=== PATIENT | male | born 1955 | race Caucasian/White ===

== ENCOUNTER 2018-08-11 12:18 | Inpatient (IN) | payer OTHER ==
[~2018-08-11] VITALS: Ht 185.4 cm; Wt 104.9 kg
[~2018-08-11 12:18] MED LIST: ASCO100019 PO; IRBE1TAB37 PO; LAMO25TA PO; LEVO5TAB29 PO; LYSI500T25 PO; NAPR220C2 PO
[2018-08-11] MEDS ORDERED: LACTATED RINGERS 1,000 ML IV SCH (13:09)
[2018-08-11] MEDS ORDERED: FENTANYL PF 250 MCG/5ML ONE (15:09)
[2018-08-11] MEDS ORDERED: MIDAZOLAM 1 MG/ML, 2ML ONE (15:09)
[2018-08-11] MEDS: ROPIvacaine/PF 0.2%, 100ML 550 ML (check volume) INJ ONE (16:00)
[2018-08-11] MEDS ORDERED: PROPOFOL 10 MG/ML, 50ML ONE (16:02)
[2018-08-11] MEDS ORDERED: ROCURONIUM 10 MG/ML,10ML ONE (16:02)
[2018-08-11] MEDS ORDERED: SUCCINYLCHOLINE 20 MG/ML, 10ML ONE (16:02)
[2018-08-11] MEDS ORDERED: TRANEXAMIC ACID 100 MG/ML, 10ML ONE (16:20)
[2018-08-11] MEDS ORDERED: DEXAMETHASONE 4 MG/ML, 1ML ONE (17:56)
[2018-08-11] MEDS ORDERED: PROPOFOL 10 MG/ML, 20ML ONE (17:56)
[2018-08-11] MEDS ORDERED: CEFAZOLIN 1,000 MG ONE (17:56)
[2018-08-11] MEDS ORDERED: BUPIVACAINE/PF 0.25% ONE (17:56)
[2018-08-11] MEDS ORDERED: ONDANSETRON 2MG/ML, 2ML ONE (17:56)
[2018-08-11] MEDS ORDERED: ONDANSETRON 2MG/ML, 2ML IV PRN ×2 (18:00→23:00)
[2018-08-11] MEDS ORDERED: ALBUTEROL/IPRATROPIUM 2.5MG/0.5MG, 3 ML NPPB PRN (18:00)
[2018-08-11] MEDS ORDERED: HYDROmorphone 2 MG/ML, 1ML IVPush PRN (18:00)
[2018-08-11] MEDS ORDERED: OXYcodone 5 MG/5 ML ORAL.SOL UDC PO PRN ×2 (18:00→23:00)
[2018-08-11] MEDS ORDERED: FENTANYL PF 100 MCG/2ML IV PRN (18:00)
[2018-08-11] MEDS ORDERED: PROMETHAZINE 25 MG/ML, 1ML IV PRN (18:00)
[2018-08-11] MEDS ORDERED: LABETALOL 5MG/ML, 20ML IV PRN (18:00)
[2018-08-11] MEDS ORDERED: MEPERIDINE/PF 25MG/0.5ML IVPush PRN (18:00)
[2018-08-11] MEDS ORDERED: hydrALAzine 20 MG/ML, 1ML IV PRN (18:00)
[2018-08-11] MEDS ORDERED: MIDAZOLAM 1 MG/ML, 2ML IV PRN (18:00)
[2018-08-11] MEDS ORDERED: SCOPOLAMINE PATCH, 1.5MG PATCH.TD72 TD PRN (18:00)
[2018-08-11 20:30] VITALS: BP 144/77
[2018-08-11] MEDS ORDERED: DIPHENHYDRAMINE 25 MG CAPSULE PO PRN (23:00)
[2018-08-11] MEDS ORDERED: HYDROcodone/APAP 7.5-325MG/15ML UDC PO PRN (23:00)
[2018-08-11] MEDS ORDERED: morphine SULFATE 10 MG/ML, 1ML IV PRN (23:00)
[2018-08-11] MEDS: KETOROLAC 30 MG/1 ML IV SCH (23:55)
[2018-08-11] MEDS: CEFAZOLIN PMX 2GM/50ML 50 ML IVPB SCH (23:55)
[2018-08-12 00:09] VITALS: BP 136/77
[2018-08-12 04:21] VITALS: BP 130/71
[2018-08-12] MEDS ORDERED: ENOXAPARIN 40 MG/0.4 ML SQ SCH (06:00)
[2018-08-12 06:59] VITALS: BP 117/71
[2018-08-12] MEDS: CEFAZOLIN PMX 2GM/50ML 50 ML IVPB SCH (07:59)
[2018-08-12] MEDS: KETOROLAC 30 MG/1 ML IV SCH (07:59)
[2018-08-12] MEDS ORDERED: ASPIRIN 81 MG TABLET CHEW PO SCH (09:00)
== END 2018-08-12 11:48 | disposition home or self-care (01) | DRG 469 ==
LOC: ORIP 12:18 → 4NOR 20:30 → DCLOUNGE 08-12 11:40
PROVIDERS: ADMIT Orthopaedic Surgery Foot and Ankle Surgery; ATTEND Orthopaedic Surgery Foot and Ankle Surgery
PROC: 0QPJ04Z Removal of Internal Fixation Device from Right Fibula, Open Approach (ICD-10-PCS; 2018-08-11)
PROC: 0QPG04Z Removal of Internal Fixation Device from Right Tibia, Open Approach (ICD-10-PCS; 2018-08-11)
PROC: 0L8N0ZZ Division of Right Lower Leg Tendon, Open Approach (ICD-10-PCS; 2018-08-11)
PROC: 3E0T3BZ Introduction of Anesthetic Agent into Peripheral Nerves and Plexi, Percutaneous Approach (ICD-10-PCS; 2018-08-11)
PROC: 0SRF0JZ Replacement of Right Ankle Joint with Synthetic Substitute, Open Approach (ICD-10-PCS; principal; 2018-08-11 14:15)
DX: M17.31 Unilateral post-traumatic osteoarthritis, right knee (principal); I10 Essential (primary) hypertension; K21.9 Gastro-esophageal reflux disease without esophagitis; G40.909 Epilepsy, unspecified, not intractable, without status epilepticus; H40.9 Unspecified glaucoma
CPT/HCPCS: 76001; G0378; J0690; J1100; J1650; J1885; J2250; J2405; J2704; J2795; J3010; J3490; C1776; J0330; J7120; Q0163

== ENCOUNTER 2020-06-06 05:42 | Inpatient (IN) | payer OTHER ==
[2020-06-03 09:16] LABS: BASOPHILS % (AUTO) 1 % (0-1); EOSINOPHILS % (AUTO) 3 % (1-7); LYMPHOCYTES % (AUTO) 28 % (22-44); MD NO; MEAN CORPUSCULAR HEMOGLOBIN 32.5 pg (27.5-34.5); MEAN CORPUSCULAR HGB CONC 33.8 g/dL (33.2-36.2); MEAN PLATELET VOLUME 8.4 fL (7.4-10.4); MONOCYTES % (AUTO) 9 % (2-9); NEUTROPHILS % (AUTO) 58 % (42-75); PLATELET COUNT 253 x10^3/uL (130-400); RED BLOOD COUNT 4.38 x10^6/uL (4.38-5.82); RED CELL DISTRIBUTION WIDTH 13.1 % (9.4-14.8)
[2020-06-03 09:22] LABS: PROTHROMBIN TIME 10.3 Seconds (9.6-11.5)
[2020-06-03 09:29] LABS: ALBUMIN 4.2 g/dL (3.4-5.0); ANION GAP 4 mmol/L (5-15); CALCIUM 9.5 mg/dL (8.5-10.1); CHLORIDE 112 mmol/L (98-107)
[2020-06-03 09:32] LABS: ALANINE AMINOTRANSFERASE 26 U/L (12-78); ALKALINE PHOSPHATASE 66 U/L (45-117); BILIRUBIN,TOTAL 0.4 mg/dL (0.2-1.0); TOTAL PROTEIN 7.8 g/dL (6.4-8.2)
[~2020-06-06] VITALS: Ht 182.9 cm; Wt 108.0 kg
[~2020-06-06 05:42] MED LIST changes: -LAMO25TA PO; +LAMO25TA9 PO
[2020-06-06] MEDS ORDERED: CHLORHEXIDINE 15 ML UDC MM STA (06:35)
[2020-06-06] MEDS ORDERED: EPINEPHRINE 1 MG/ML, 1ML ONE (06:42)
[2020-06-06] MEDS ORDERED: BUPIVACAINE/PF 0.5% ONE (06:42)
[2020-06-06] MEDS ORDERED: BACITRACIN 50,000 UNIT ONE (06:42)
[2020-06-06] MEDS ORDERED: PROPOFOL 50 ML ONE ×4 (06:59→12:11)
[2020-06-06] MEDS ORDERED: FENTANYL PF 250 MCG/5ML ONE ×2 (07:00→11:21)
[2020-06-06] MEDS ORDERED: LACTATED RINGERS 1,000 ML IV SCH (07:00)
[2020-06-06] MEDS ORDERED: LIDOCAINE-MPF 1%, 5ML ONE (07:28)
[2020-06-06] MEDS ORDERED: ONDANSETRON 2MG/ML, 2ML ONE ×2 (07:28→14:09)
[2020-06-06] MEDS ORDERED: HYDROmorphone 1 MG/ML, 1ML INJ IVPush PRN (07:30)
[2020-06-06] MEDS ORDERED: FENTANYL PF 100 MCG/2ML IV PRN (07:30)
[2020-06-06] MEDS ORDERED: OXYcodone 5 MG/5 ML ORAL.SOL UDC PO PRN (07:30)
[2020-06-06] MEDS ORDERED: MEPERIDINE/PF 25MG/0.5ML IVPush PRN (07:30)
[2020-06-06] MEDS ORDERED: KETOROLAC 30 MG/1 ML IVPush PRN (07:30)
[2020-06-06] MEDS ORDERED: LABETALOL 5MG/ML, 20ML IV PRN ×2 (07:30→13:30)
[2020-06-06] MEDS ORDERED: LORazepam 2 MG/ML, 1ML IVPush PRN (07:30)
[2020-06-06] MEDS ORDERED: ONDANSETRON 2MG/ML, 2ML IVPush PRN (07:30)
[2020-06-06] MEDS ORDERED: hydrALAzine 20 MG/ML, 1ML IV PRN (07:30)
[2020-06-06] MEDS ORDERED: PROMETHAZINE 25 MG SUPP PR PRN (07:30)
[2020-06-06] MEDS ORDERED: EPHEDRINE 50 MG/ML, 1ML IVPush PRN (07:30)
[2020-06-06] MEDS ORDERED: METHOCARBAMOL 1,000 MG in DEXTROSE 5% 100 ML IV PRN (07:30)
[2020-06-06] MEDS ORDERED: ACETAMINOPHEN 325 MG TABLET PO PRN (07:30)
[2020-06-06] MEDS ORDERED: SUFentanil 50 MCG/ML, 1ML ONE ×2 (08:39→11:38)
[2020-06-06] MEDS ORDERED: FENTANYL PF 100 MCG/2ML ONE (10:02)
[2020-06-06] MEDS ORDERED: OXYcodone 5 MG/5 ML ORAL.SOL UDC ONE (10:02)
[2020-06-06] MEDS ORDERED: MEPERIDINE/PF 25MG/ML,1ML ONE (10:02)
[2020-06-06] MEDS ORDERED: ACETAMINOPHEN 650 MG/20.3 ML UDC ONE (10:28)
[2020-06-06] MEDS ORDERED: DIPHENHYDRAMINE 25 MG CAPSULE PO PRN (13:00)
[2020-06-06] MEDS ORDERED: HYDROmorphone 2 MG/ML, 1ML IM PRN (13:00)
[2020-06-06] MEDS ORDERED: OXYcodone IR 5MG TABLET PO PRN (13:00)
[2020-06-06] MEDS ORDERED: PROMETHAZINE 25 MG/ML, 1ML IM PRN (13:30)
[2020-06-06] MEDS ORDERED: METHOCARBAMOL 750 MG TABLET PO PRN (13:30)
[2020-06-06] MEDS ORDERED: DIPHENHYDRAMINE 50 MG/ML, 1ML IM PRN (13:30)
[2020-06-06] MEDS ORDERED: MAGNESIUM HYDROXIDE 8%, 30ML UDC PO PRN (13:30)
[2020-06-06] MEDS ORDERED: HYDROcodone/APAP 5/325 TABLET PO PRN (13:30)
[2020-06-06] MEDS ORDERED: BISACODYL 10 MG SUPP PR PRN (13:30)
[2020-06-06] MEDS ORDERED: ONDANSETRON 2MG/ML, 2ML IV PRN (13:30)
[2020-06-06] MEDS ORDERED: DIPHENHYDRAMINE 50 MG/ML, 1ML IVPush PRN (13:30)
[2020-06-06 13:35] VITALS: BP 134/77
[2020-06-06] MEDS ORDERED: PROPOFOL 10 MG/ML, 20ML ONE (14:09)
[2020-06-06] MEDS ORDERED: CEFAZOLIN 1,000 MG ONE (14:09)
[2020-06-06] MEDS ORDERED: DEXAMETHASONE 4 MG/ML, 1ML ONE (14:09)
[2020-06-06] MEDS ORDERED: ROCURONIUM 10MG/ML,5ML ONE (14:09)
[2020-06-06] MEDS ORDERED: NEOSTIGMINE 1 MG/ML, 10ML ONE (14:09)
[2020-06-06] MEDS ORDERED: SUCCINYLCHOLINE 20 MG/ML, 10ML ONE (14:09)
[2020-06-06] MEDS ORDERED: GLYCOPYRROLATE 0.2MG/1ML, 5ML ONE (14:09)
[2020-06-06] MEDS: NS + 20MEQ KCL 1,000 ML IV SCH (14:35)
[2020-06-06] MEDS: CEFAZOLIN PMX 1GM/50ML 50 ML IV SCH ×2 (14:35→23:40)
[2020-06-06] MEDS: CYCLOBENZAPRINE 10 MG TABLET PO PRN (18:29)
[2020-06-06 19:00] VITALS: BP 128/78
[2020-06-07 00:17] VITALS: BP 114/71
[2020-06-07] MEDS: NS + 20MEQ KCL 1,000 ML IV SCH ×2 (01:53→09:00)
[2020-06-07 03:27] VITALS: BP 101/58
[2020-06-07 05:06] LABS: BASOPHILS % (AUTO) 0 % (0-1); EOSINOPHILS % (AUTO) 0 % (1-7); LYMPHOCYTES % (AUTO) 13 % (22-44); MEAN CORPUSCULAR HEMOGLOBIN 32.7 pg (27.5-34.5); MEAN CORPUSCULAR HGB CONC 34.3 g/dL (33.2-36.2); MEAN PLATELET VOLUME 8.5 fL (7.4-10.4); MONOCYTES % (AUTO) 10 % (2-9); NEUTROPHILS % (AUTO) 77 % (42-75); PLATELET COUNT 237 x10^3/uL (130-400); RED BLOOD COUNT 3.71 x10^6/uL (4.38-5.82); RED CELL DISTRIBUTION WIDTH 12.8 % (9.4-14.8)
[2020-06-07 05:07] LABS: ANION GAP 8 mmol/L (5-15); CALCIUM 9.1 mg/dL (8.5-10.1); CHLORIDE 108 mmol/L (98-107)
[2020-06-07 05:10] LABS: CREATININE 1.15 mg/dL (0.7-1.3)
[2020-06-07 05:11] LABS: MD NO
[2020-06-07 07:10] VITALS: BP 118/68
[2020-06-07] MEDS ORDERED: OXYcodone/APAP 5/325MG PO (08:26)
[2020-06-07] MEDS ORDERED: CALCIUM CARBONATE 500 MG TAB.CHEW PO PRN (08:30)
[2020-06-07] MEDS ORDERED: FAMOTIDINE 40 MG TABLET ONE ×2 (08:57→21:02)
[2020-06-07] MEDS: LOSARTAN 50MG TABLET PO SCH (08:59)
[2020-06-07] MEDS: LAMOTRIGINE 25 MG TABLET PO SCH (08:59)
[2020-06-07] MEDS: SENNA/DOCUSATE TABLET PO SCH (08:59)
[2020-06-07] MEDS: HYDROCHLOROTHIAZIDE 12.5 MG CAPSULE PO SCH (08:59)
[2020-06-07] MEDS ORDERED: LEVOCETIRIZINE 5 MG TAB PO PRN (09:00)
[2020-06-07] MEDS: FAMOTIDINE 20 MG TABLET PO SCH ×2 (09:00→21:00)
[2020-06-07] MEDS: OXYcodone/APAP 5/325MG TABLET PO PRN ×3 (09:09→20:59)
[2020-06-07 12:54] VITALS: BP 131/72
[2020-06-07] MEDS: CYCLOBENZAPRINE 10 MG TABLET PO PRN ×2 (13:13→21:06)
[2020-06-07 20:32] VITALS: BP 121/78
[2020-06-08] MEDS: OXYcodone/APAP 5/325MG TABLET PO PRN ×2 (00:57→05:26)
[2020-06-08 01:58] VITALS: BP 111/59
[2020-06-08] MEDS: CYCLOBENZAPRINE 10 MG TABLET PO PRN ×2 (05:26→13:45)
[2020-06-08] MEDS: NS + 20MEQ KCL 1,000 ML IV SCH ×2 (05:30→11:25)
[2020-06-08 07:20] VITALS: BP 94/57
[2020-06-08] MEDS: HYDROCHLOROTHIAZIDE 12.5 MG CAPSULE PO SCH (09:00)
[2020-06-08] MEDS: LOSARTAN 50MG TABLET PO SCH (09:00)
[2020-06-08] MEDS ORDERED: FAMOTIDINE 40 MG TABLET ONE (09:05)
[2020-06-08] MEDS: LAMOTRIGINE 25 MG TABLET PO SCH (09:09)
[2020-06-08] MEDS: SENNA/DOCUSATE TABLET PO SCH (09:09)
[2020-06-08] MEDS: FAMOTIDINE 20 MG TABLET PO SCH (09:10)
[2020-06-08 14:06] VITALS: BP 106/65
== END 2020-06-08 15:51 | disposition home or self-care (01) | DRG 520 ==
LOC: OUT 05:42 → EDSTATUS 07:30 → 3WST 12:13 → ORIP 12:14 → OUT 13:29 → 4NE 16:02
PROVIDERS: ADMIT Neurological Surgery; ATTEND Neurological Surgery
PROC: 01NB0ZZ Release Lumbar Nerve, Open Approach (ICD-10-PCS; 2020-06-06)
PROC: 0SB40ZZ Excision of Lumbosacral Disc, Open Approach (ICD-10-PCS; 2020-06-06)
PROC: 0SB20ZZ Excision of Lumbar Vertebral Disc, Open Approach (ICD-10-PCS; 2020-06-06)
PROC: 00NY0ZZ Release Lumbar Spinal Cord, Open Approach (ICD-10-PCS; principal; 2020-06-06 07:30)
DX: M51.26 Other intervertebral disc displacement, lumbar region (principal); Z20.828 Contact with and (suspected) exposure to other viral communicable diseases; M48.061 Spinal stenosis, lumbar region without neurogenic claudication; Z88.8 Allergy status to other drugs, medicaments and biological substances
CPT/HCPCS: 36415; 72100; S0020; 71046; 80048; 80053; 85025; 85610; 85730; 87635; 93005; G0378; J0171; J0690; J1100; J2270; J2405; J2704; J2710; J3010; J3480; J0330; J2800; J7120